=== PATIENT | female | born 1990 | race American Indian/Alaskan Native ===

== ENCOUNTER 2019-07-24 04:21 | Emergency (ER) | payer SELFPAY ==
[2019-07-24 05:33] LABS: Bacteria,Urine 1+ /HPF (Negative); Bilirubin,Urine NEG (Negative); Blood,Urine SM (Negative); Color,Urine Straw (Yellow); Mucus,Urine FEW /HPF; Protein,Urine <15 mg/dL mg/dL (Negative); Urobilinogen,Urine < 2.0 mg/dL (<2.0)
[2019-07-24 05:35] LABS: HCG Qualitative,Urine Negative (Negative)
--- NOTE | 2019-07-24 08:02 | Emergency Department Report ---
ED Female HPI - General Chief complaint: Urogenital-Female Stated complaint: VAGINAL CYST/DISCHARGE Time Seen by Provider: 07/24/19 07:14 Source: patient Mode of arrival: Ambulatory Limitations: No Limitations - History of Present Illness Initial comments: Patient is a 28-year-old female presents emergency room with complaints of vaginal discharge that began a week ago. She states that the discharge is clear. She states she has associated dysuria. Patient states that she has also noticed a cyst of the right labia that began 3 days ago. She has never had this before. She denies any abdominal pain, fever, chills, nausea, vomiting. She states she has past medical history of diabetes. She denies any allergies medications. She states her last menstrual cycle was 07/03/19. - Related Data Previous Rx's Medication Instructions Recorded Last Taken Type Insulin NPH, Human [NovoLIN N] 10 unit SUB-Q BID #1 vial 12/04/14 Unknown Rx metroNIDAZOLE [Flagyl] 500 mg PO BID #14 tablet 12/04/14 Unknown Rx traMADoL [Ultram] 50 mg PO Q6HR PRN #14 tablet 12/04/14 Unknown Rx Acetaminophen/Codeine [Tylenol 1 tab PO Q6H PRN #10 tab 07/24/19 Unknown Rx /Codeine # 3 tab] metroNIDAZOLE [Flagyl] 500 mg PO BID 7 Days #14 tab 07/24/19 Unknown Rx Allergies Allergy/AdvReac Type Severity Reaction Status Date / Time No Known Allergies Allergy Unverified 12/04/14 13:54 ED Review of Systems ROS: Stated complaint: VAGINAL CYST/DISCHARGE Other details as noted in HPI Comment: All other systems reviewed and negative ED Past Medical Hx - Past Medical History Previous Medical History?: Yes Hx Diabetes: Yes (diagnosed at age 15) - Surgical History Past Surgical History?: No - Social History Smoking Status: Never Smoker - Medications Home Medications: Home Medications Medication Instructions Recorded Confirmed Last Taken Type Insulin NPH, Human [NovoLIN N] 10 unit SUB-Q BID #1 vial 12/04/14 Unknown Rx metroNIDAZOLE [Flagyl] 500 mg PO BID #14 tablet 12/04/14 Unknown Rx traMADoL [Ultram] 50 mg PO Q6HR PRN #14 tablet 12/04/14 Unknown Rx Acetaminophen/Codeine [Tylenol 1 tab PO Q6H PRN #10 tab 07/24/19 Unknown Rx /Codeine # 3 tab] metroNIDAZOLE [Flagyl] 500 mg PO BID 7 Days #14 tab 07/24/19 Unknown Rx ED Physical Exam - General Limitations: No Limitations General appearance: alert, in no apparent distress - Head Head exam: Present: atraumatic, normocephalic - Eye Eye exam: Present: normal appearance - ENT ENT exam: Present: mucous membranes moist - GI/Abdominal GI/Abdominal exam: Present: soft. Absent: distended, tenderness, guarding, rebound, rigid - External exam: Present: swelling (2 cm area of induration and fluctuance present to the inner right labia, no drainage, no necrosis) Speculum exam: Present: vaginal discharge (white), cervical discharge (white), other (rv detailer: REYNA ortega). Absent: vaginal bleeding, foreign body, tissue, laceration Bi-manual exam: Present: normal bi-manual exam. Absent: cervical motion tendernes, adnexal tenderness, adnexal mass - Back Exam Back exam: Absent: CVA tenderness (R), CVA tenderness (L) - Neurological Exam Neurological exam: Present: alert, oriented X3 - Psychiatric Psychiatric exam: Present: normal affect, normal mood - Skin Skin exam: Present: warm, dry, intact ED Course Vital Signs 07/24/19 07/24/19 07/24/19 04:25 08:28 08:32 Temperature 97.8 F 97.9 F Pulse Rate 96 H 99 H Respiratory 18 16 16 Rate Blood Pressure 121/84 Blood Pressure 124/89 [Left] O2 Sat by Pulse 97 99 Oximetry 07/24/19 09:40 Temperature 97.7 F Pulse Rate 98 H Respiratory 15 Rate Blood Pressure Blood Pressure 116/77 [Left] O2 Sat by Pulse 98 Oximetry - I & D Right Vagina Type of Procedure: Simple Site: right labia Blade Size: 11 I & D Procedure: betadine prep, sterile drapes applied, sterile dressing applied Progress: Area cleaned with Betadine, 2 mL of 1% lidocaine without epinephrine used as anesthetic, Betadine prep again, sterile drapes applied, 1 cm incision made with 11 blade, initially clear fluid and then purulent drainage expressed, irrigated with saline, iodoform packing placed, patient tolerated well, no complications, bleeding controlled ED Medical Decision Making - Lab Data Lab Results 07/24/19 Range/Units 05:20 Urine Color Straw (Yellow) Urine Turbidity Clear (Clear) Urine pH 6.0 (5.0-7.0) Ur Specific [place] 1.029 (1.003-1.030) Urine Protein <15 mg/dl (Negative) mg/dL Urine Glucose (UA) >=500 (Negative) mg/dL Urine Ketones Neg (Negative) mg/dL Urine Blood Sm (Negative) Urine Nitrite Neg (Negative) Urine Bilirubin Neg (Negative) Urine Urobilinogen < 2.0 (<2.0) mg/dL Ur Leukocyte Esterase Sm (Negative) Urine WBC (Auto) 8.0 H (0.0-6.0) /HPF Urine RBC (Auto) 4.0 (0.0-6.0) /HPF U Epithel Cells (Auto) 2.0 (0-13.0) /HPF Urine Bacteria (Auto) 1+ (Negative) /HPF Urine Mucus Few /HPF Urine HCG, Qual Negative (Negative) - Medical Decision Making Patient is a 28-year-old female presents emergency room with complaints of vaginal discharge that began a week ago. She states that the discharge is clear. She states she has associated dysuria. Patient states that she has also noticed a cyst of the right labia that began 3 days ago. She has never had this before. She denies any abdominal pain, fever, chills, nausea, vomiting. She states she has past medical history of diabetes. She denies any allergies medications. She states her last menstrual cycle was 07/03/19. vitals are norm al. on exam: 2 cm area of induration and fluctuance present to the inner right labia, no drainage, no necrosis, white vaginal/cervical discharge, no CMT, no adenexal tenderness or masses, rv detailer during pelvic examination and I&D: REYNA ortega. UA has very small amount of WBCs and leukocyte esterase but no nitrites, could be related to the BV, will have pt have a repeat of her urine in the next 2-3 days at the [facility]. Incision and drainage performed per procedure note and packing placed. wet Prep shows evidence of BV. pt given prescription for flagyl and tylenol with codine. advised pt to please keep area clean, dry, covered. may wash around the area with soap and water and immediately dry. Packing needs to be removed in 2 days may have this done at the emergency room or by the [facility]. Please take medication as prescribed. Do not drink alcohol while taking medication. Please go to medical records in one week with your drivers license to see if you need further treatment. Please have your partner tested and treated as well. Abstain from sexual intercourse for 7 days. follow up with an [facility] in the next 2-3 days. Return to the emergency room for any new or worsening symptoms. - Differential Diagnosis BV, yeast, STD, vaginitis, bartholins cyst, abscess, UTI Critical care attestation.: If time is entered above; I have spent that time in minutes in the direct care of this critically ill patient, excluding procedure time. ED Disposition Clinical Impression: Bacterial vaginosis, Bartholin cyst Disposition: TO HOME OR SELFCARE Is pt being admited?: No Does the pt Need Aspirin: No Condition: Stable Instructions: Bacterial Vaginosis (ED), Bartholin Cyst (ED), Incision and Drainage (ED) Additional Instructions: Please keep area clean, dry, covered. may wash around the area with soap and water and immediately dry. Packing needs to be removed in 2 days may have this done at the emergency room or by the [facility]. Please take medication as prescribed. Do not drink alcohol while taking medication. Please go to medical records in one week with your drivers license to see if you need further treatment. Please have your partner tested and treated as well. Abstain from sexual intercourse for 7 days. follow up with an [facility] in the next 2-3 days. Return to the emergency room for any new or worsening symptoms. Prescriptions: metroNIDAZOLE [Flagyl] 500 mg PO BID 7 Days #14 tab Acetaminophen/Codeine [Tylenol /Codeine # 3 tab] 1 tab PO Q6H PRN #10 tab PRN Reason: Pain , Severe (7-10) Referrals: [facility] [Outside] - 2-3 Days [facility] [Provider Group] - 2-3 Days [facility] [Provider Group] - 2-3 Days [facility] [Provider Group] - 2-3 Days Forms: [facility] and Prevention Time of Disposition: 09:26 Print Language: PRYDEINIG
[2019-07-24] MEDS ORDERED: LIDOCAINE-MPF (1%) 10 MG/1 ML VIAL 5 ML INFILTRATI ONE (08:43)
[2019-07-24 09:41] VITALS: BP 116/77
== END 2019-07-24 09:42 | disposition home or self-care (01) ==
LOC: ED 04:21
DX: N76.0 Acute vaginitis (principal); B96.89 Other specified bacterial agents as the cause of diseases classified elsewhere; N75.0 Cyst of Bartholin's gland
CPT/HCPCS: 81001; 81025; 87210; 87591

== ENCOUNTER 2019-07-26 12:14 | Emergency (ER) | payer SELFPAY ==
[2019-07-26 12:57] VITALS: BP 105/75
--- NOTE | 2019-07-26 13:17 | Emergency Department Report ---
ED Recheck HPI - General Chief Complaint: Laceration/Recheck/Suture Stated Complaint: REMOVE GAUZE Time Seen by Provider: 07/26/19 12:55 Source: patient Mode of arrival: Ambulatory Limitations: No Limitations - History of Present Illness MD Complaint: wound re-check -: days(s) (3) Initial Visit For: abscess Returns Today for: wound recheck Symptoms Since Prior Visit: no new symptoms, improved Context: planned re-check Associated Symptoms: none Treatments Prior to Arrival: Given Antibiotics on - Related Data Previous Rx's Medication Instructions Recorded Last Taken Type Insulin NPH, Human [NovoLIN N] 10 unit SUB-Q BID #1 vial 12/04/14 Unknown Rx metroNIDAZOLE [Flagyl] 500 mg PO BID #14 tablet 12/04/14 Unknown Rx traMADoL [Ultram] 50 mg PO Q6HR PRN #14 tablet 12/04/14 Unknown Rx Acetaminophen/Codeine [Tylenol 1 tab PO Q6H PRN #10 tab 07/24/19 Unknown Rx /Codeine # 3 tab] metroNIDAZOLE [Flagyl] 500 mg PO BID 7 Days #14 tab 07/24/19 Unknown Rx Allergies Allergy/AdvReac Type Severity Reaction Status Date / Time No Known Allergies Allergy Unverified 12/04/14 13:54 ED Review of Systems ROS: Stated complaint: REMOVE GAUZE Other details as noted in HPI Comment: All other systems reviewed and negative ED Past Medical Hx - Past Medical History Previous Medical History?: Yes Hx Diabetes: Yes (diagnosed at age 15) - Surgical History Past Surgical History?: No - Social History Smoking Status: Never Smoker Substance Use Type: None - Medications Home Medications: Home Medications Medication Instructions Recorded Confirmed Last Taken Type Insulin NPH, Human [NovoLIN N] 10 unit SUB-Q BID #1 vial 12/04/14 Unknown Rx metroNIDAZOLE [Flagyl] 500 mg PO BID #14 tablet 12/04/14 Unknown Rx traMADoL [Ultram] 50 mg PO Q6HR PRN #14 tablet 12/04/14 Unknown Rx Acetaminophen/Codeine [Tylenol 1 tab PO Q6H PRN #10 tab 07/24/19 Unknown Rx /Codeine # 3 tab] metroNIDAZOLE [Flagyl] 500 mg PO BID 7 Days #14 tab 07/24/19 Unknown Rx ED Physical Exam - General Limitations: No Limitations General appearance: alert, in no apparent distress - Head Head exam: Present: atraumatic, normocephalic - Eye Eye exam: Present: normal appearance - ENT ENT exam: Present: mucous membranes moist - Neck Neck exam: Present: normal inspection - Respiratory Respiratory exam: Present: normal lung sounds bilaterally. Absent: respiratory distress - Cardiovascular Cardiovascular Exam: Present: regular rate, normal rhythm. Absent: systolic murmur, diastolic murmur, rubs, gallop - GI/Abdominal GI/Abdominal exam: Present: soft, normal bowel sounds - External exam: Present: erythema (PACKING IN PLACE TO RIGHT LABIA. ), swelling - Extremities Exam Extremities exam: Present: normal inspection - Back Exam Back exam: Present: normal inspection - Neurological Exam Neurological exam: Present: alert, oriented X3 - Psychiatric Psychiatric exam: Present: normal affect, normal mood - Skin Skin exam: Present: warm, dry, intact, normal color. Absent: rash ED Course Vital Signs 07/26/19 12:55 Temperature 97.5 F L Pulse Rate 100 H Respiratory 16 Rate Blood Pressure 105/75 O2 Sat by Pulse 100 Oximetry - Procedure Description Procedures done: ABSCESS PACKING REMOVED NO COMPLICATIONSL. NO COMPLICATIONS. Critical care attestation.: If time is entered above; I have spent that time in minutes in the direct care of this critically ill patient, excluding procedure time. ED Disposition Clinical Impression: Redressing wound Disposition: DC-01 TO HOME OR SELFCARE Is pt being admited?: No Does the pt Need Aspirin: No Condition: Stable Instructions: Acute Wound Care (ED) Referrals: [facility] [Provider Group] - 3-5 Days Forms: Work/School Release Form(ED)
== END 2019-07-26 13:30 | disposition home or self-care (01) ==
LOC: ED 12:14
DX: Z48.1 Encounter for planned postprocedural wound closure (principal); Z53.21 Procedure and treatment not carried out due to patient leaving prior to being seen by health care provider

== ENCOUNTER 2021-08-29 09:30 | Emergency (ER) | payer MEDICAID ==
[2021-08-29 09:47] VITALS: BP 144/95
[2021-08-29] MEDS ORDERED: MORPHINE 4 MG/1 ML INJ IV ONE (10:55)
[2021-08-29] MEDS ORDERED: FAMOTIDINE 20 MG/2 ML INJ IV ONE (10:55)
[2021-08-29] MEDS ORDERED: diphenhydrAMINE 50 MG/ML VIAL IV ONE (10:55)
[2021-08-29] MEDS ORDERED: METOCLOPRAMIDE 10 MG/2 ML INJ IV ONE (10:55)
[2021-08-29] MEDS ORDERED: SODIUM CHLORIDE 0.9% 1000 ML 1,000 ML IV ONE ×2 (10:55→13:06)
--- NOTE | 2021-08-29 11:00 | Emergency Department Report ---
ED General Adult HPI - General Chief complaint: Nausea/Vomiting/Diarrhea Stated complaint: CHEST/ABD PAIN Time Seen by Provider: 08/29/21 10:36 Source: patient Mode of arrival: Ambulatory Limitations: No Limitations - History of Present Illness Initial comments: 30-year-old -Domin[place] female patient presents with complaints of nausea and vomiting for the past 2 days along with mid/upper abdominal pain. She has history of type 1 diabetes. Patient states she has had similar pain over the past few months and has been seen at 3 separate hospitals. She states the only findings were a ovarian cyst. She denies history of gastroparesis or abdominal surgeries. No fever/chills/sweats, cough, chest pain, hematemesis/coffee-ground emesis, melena or hematochezia per patient. She also denies alcohol use. She rates her current pain as a 7/10 in severity. No known drug allergies per patient -: Sudden - Related Data Previous Rx's Medication Instructions Recorded Last Taken Type Insulin NPH, Human [NovoLIN N] 10 unit SUB-Q BID #1 vial 12/04/14 Unknown Rx metroNIDAZOLE [Flagyl] 500 mg PO BID #14 tablet 12/04/14 Unknown Rx traMADoL [Ultram] 50 mg PO Q6HR PRN #14 tablet 12/04/14 Unknown Rx Acetaminophen/Codeine [Tylenol 1 tab PO Q6H PRN #10 tab 07/24/19 Unknown Rx /Codeine # 3 tab] metroNIDAZOLE [Flagyl] 500 mg PO BID 7 Days #14 tab 07/24/19 Unknown Rx Metoclopramide [Reglan] 10 mg PO TID PRN #30 tab 08/29/21 Unknown Rx Pantoprazole [Protonix] 40 mg PO QAM #14 tablet 08/29/21 Unknown Rx Sucralfate [Carafate] 1 gm PO QID 10 Days #40 tablet 08/29/21 Unknown Rx diphenhydrAMINE [Benadryl CAP] 25 mg PO TID PRN #30 capsule 08/29/21 Unknown Rx Allergies Allergy/AdvReac Type Severity Reaction Status Date / Time No Known Allergies Allergy Verified 08/29/21 09:41 ED Review of Systems ROS: Stated complaint: CHEST/ABD PAIN Other details as noted in HPI Constitutional: denies: chills, fever, malaise Respiratory: denies: cough, shortness of breath Cardiovascular: denies: chest pain Gastrointestinal: abdominal pain, nausea, vomiting. denies: diarrhea, constipation, hematemesis, melena, hematochezia Genitourinary: denies: urgency, frequency, hematuria, abnormal menses, dyspareunia Musculoskeletal: denies: back pain Skin: denies: as per HPI, rash, change in color Neurological: denies: headache Hematological/Lymphatic: denies: swollen glands ED Past Medical Hx - Past Medical History Hx Diabetes: Yes (diagnosed at age 15) - Surgical History Past Surgical History?: No - Social History Smoking Status: Never Smoker Substance Use Type: None - Medications Home Medications: Home Medications Medication Instructions Recorded Confirmed Last Taken Type Insulin NPH, Human [NovoLIN N] 10 unit SUB-Q BID #1 vial 12/04/14 Unknown Rx metroNIDAZOLE [Flagyl] 500 mg PO BID #14 tablet 12/04/14 Unknown Rx traMADoL [Ultram] 50 mg PO Q6HR PRN #14 tablet 12/04/14 Unknown Rx Acetaminophen/Codeine [Tylenol 1 tab PO Q6H PRN #10 tab 07/24/19 Unknown Rx /Codeine # 3 tab] metroNIDAZOLE [Flagyl] 500 mg PO BID 7 Days #14 tab 07/24/19 Unknown Rx Metoclopramide [Reglan] 10 mg PO TID PRN #30 tab 08/29/21 Unknown Rx Pantoprazole [Protonix] 40 mg PO QAM #14 tablet 08/29/21 Unknown Rx Sucralfate [Carafate] 1 gm PO QID 10 Days #40 tablet 08/29/21 Unknown Rx diphenhydrAMINE [Benadryl CAP] 25 mg PO TID PRN #30 capsule 08/29/21 Unknown Rx ED Physical Exam - General Limitations: No Limitations General appearance: alert, in no apparent distress - Head Head exam: Present: atraumatic, normocephalic - Eye Eye exam: Present: normal appearance. Absent: scleral icterus - Neck Neck exam: Present: normal inspection - Respiratory Respiratory exam: Present: normal lung sounds bilaterally. Absent: respiratory distress - Cardiovascular Cardiovascular Exam: Present: regular rate, normal rhythm - GI/Abdominal GI/Abdominal exam: Present: soft, tenderness (Epigastric and periumbilical), normal bowel sounds. Absent: distended, guarding, rebound, rigid - Expanded GI/Abdominal Exam Expanded GI/Abdominal exam: Absent: Drake's sign, tenderness at Mcbur[place]'s Point - Back Exam Back exam: Present: normal inspection, CVA tenderness (R) (Minimal). Absent: CVA tenderness (L) - Neurological Exam Neurological exam: Present: alert, oriented X3, normal gait - Psychiatric Psychiatric exam: Present: normal affect, normal mood - Skin Skin exam: Present: warm, dry, intact, normal color. Absent: rash ED Course Vital Signs 08/29/21 09:46 Temperature 98.5 F Pulse Rate 104 H Respiratory 20 Rate Blood Pressure 144/95 O2 Sat by Pulse 98 Oximetry ED Medical Decision Making - Lab Data Result diagrams: 08/29/21 11:13 08/29/21 11:13 Lab Results 08/29/21 08/29/21 08/29/21 Range/Units 09:47 11:13 11:13 WBC 8.3 (4.5-11.0) K/mm3 RBC 4.08 (3.65-5.03) M/mm3 Hgb 10.6 (10.1-14.3) gm/dl Hct 32.9 (30.3-42.9) % MCV 81 (79-97) fl MCH 26 L (28-32) pg MCHC 32 (30-34) % RDW 17.1 H (13.2-15.2) % Plt Count 425 (140-440) K/mm3 Lymph % (Auto) 22.8 (13.4-35.0) % [place] % (Auto) 5.7 (0.0-7.3) % Eos % (Auto) 0.3 (0.0-4.3) % Baso % (Auto) 0.7 (0.0-1.8) % Lymph # (Auto) 1.9 (1.2-5.4) K/mm3 [place] # (Auto) 0.5 (0.0-0.8) K/mm3 Eos # (Auto) 0.0 (0.0-0.4) K/mm3 Baso # (Auto) 0.1 (0.0-0.1) K/mm3 Seg Neutrophils % 70.5 H (40.0-70.0) % Seg Neutrophils # 5.9 (1.8-7.7) K/mm3 VBG pH (7.320-7.420) Sodium 133 L (137-145) mmol/L Potassium 4.0 (3.6-5.0) mmol/L Chloride 97.7 L (98-107) mmol/L Carbon Dioxide 19 L (22-30) mmol/L Anion Gap 20 mmol/L BUN 16 (7-17) mg/dL Creatinine 0.6 (0.6-1.2) mg/dL Estimated GFR > 60 ml/min BUN/Creatinine Ratio 27 % Glucose 241 H (65-100) mg/dL POC Glucose 225 H (70-105) mg/dL Calcium 8.9 (8.4-10.2) mg/dL Total Bilirubin 0.40 (0.1-1.2) mg/dL AST 18 (5-40) units/L ALT 12 (7-56) units/L Alkaline Phosphatase 151 H (35-129) units/L Total Protein 7.9 (6.3-8.2) g/dL Albumin 3.8 L (3.9-5) g/dL Albumin/Globulin Ratio 0.9 % Lipase 27 (13-60) units/L HCG, Qual (Negative) 08/29/21 08/29/21 Range/Units 11:13 11:13 WBC (4.5-11.0) K/mm3 RBC (3.65-5.03) M/mm3 Hgb (10.1-14.3) gm/dl Hct (30.3-42.9) % MCV (79-97) fl MCH (28-32) pg MCHC (30-34) % RDW (13.2-15.2) % Plt Count (140-440) K/mm3 Lymph % (Auto) (13.4-35.0) % [place] % (Auto) (0.0-7.3) % Eos % (Auto) (0.0-4.3) % Baso % (Auto) (0.0-1.8) % Lymph # (Auto) (1.2-5.4) K/mm3 [place] # (Auto) (0.0-0.8) K/mm3 Eos # (Auto) (0.0-0.4) K/mm3 Baso # (Auto) (0.0-0.1) K/mm3 Seg Neutrophils % (40.0-70.0) % Seg Neutrophils # (1.8-7.7) K/mm3 VBG pH 7.414 (7.320-7.420) Sodium (137-145) mmol/L Potassium (3.6-5.0) mmol/L Chloride (98-107) mmol/L Carbon Dioxide (22-30) mmol/L Anion Gap mmol/L BUN (7-17) mg/dL Creatinine (0.6-1.2) mg/dL Estimated GFR ml/min BUN/Creatinine Ratio % Glucose (65-100) mg/dL POC Glucose (70-105) mg/dL Calcium (8.4-10.2) mg/dL Total Bilirubin (0.1-1.2) mg/dL AST (5-40) units/L ALT (7-56) units/L Alkaline Phosphatase (35-129) units/L Total Protein (6.3-8.2) g/dL Albumin (3.9-5) g/dL Albumin/Globulin Ratio % Lipase (13-60) units/L HCG, Qual Negative (Negative) - Radiology Data Radiology results: report reviewed CT ABDOMEN: Lung Bases: No significant abnormality. Liver: No significant abnormality. Biliary: No significant abnormality. Spleen: No significant abnormality. Unenlarged. Pancreas: No significant abnormality. Adrenals: No significant abnormality. Kidneys: No significant abnormality. Lymphatics: No lymphadenopathy. Vasculature: No significant abnormality. Bowel/Peritoneum: No significant abnormality. No free air. No free fluid. CT PELVIC: : There is a 4.8 cm left ovarian cyst. Lymphatics: No lymphadenopathy. Osseous Structures: No aggressive appearing osseous lesions. Additional Findings: None IMPRESSION: 1. No acute findings. 2. Incidental 4.8 cm left ovarian cyst. - Medical Decision Making 30-year-old -[place] female patient presents with complaints of nausea and vomiting for the past 2 days along with mid/upper abdominal pain. She has history of type 1 diabetes. Patient states she has had similar pain over the past few months and has been seen at 3 separate hospitals. She states the only findings were a ovarian cyst. She denies history of gastroparesis or abdominal surgeries. No fever/chills/sweats, cough, chest pain, hematemesis/coffee-ground emesis, melena or hematochezia per patient. She also denies alcohol use. She rates her current pain as a 7/10 in severity. No known drug allergies per patient No acute abnormalities noted on CBC. Dehydration noted on CMP with anion gap of 20. Lipase is normal. CT abdomen is negative for any acute abnormalities and shows right ovarian cyst which is consistent with patient's past medical history. Her vitals are within normal limits and she is well-appearing. Vomiting is controlled with meds given here in ED. Suspect patient may have gastroparesis. Recommend follow-up with GI specialist, referral provided. Discussed in detail signs and symptoms that should prompt immediate return to the ED with patient verbalizes understand Critical care attestation.: If time is entered above; I have spent that time in minutes in the direct care of this critically ill patient, excluding procedure time. ED Disposition Clinical Impression: Nausea & vomiting Disposition: 01 HOME / SELF CARE / HOMELESS Is pt being admited?: No Condition: Stable Instructions: Gastroparesis Prescriptions: diphenhydrAMINE [Benadryl CAP] 25 mg PO TID PRN #30 capsule PRN Reason: Nausea Sucralfate [Carafate] 1 gm PO QID 10 Days #40 tablet Pantoprazole [Protonix] 40 mg PO QAM #14 tablet Metoclopramide [Reglan] 10 mg PO TID PRN #30 tab PRN Reason: Nausea Referrals: PRIMARY CARE, [Primary Care Provider] - 3-5 Days [facility] [Provider Group] - 3-5 Days Forms: Work/School Release Form(ED)
[2021-08-29 12:17] LABS: Basophils # (Auto) 0.1 K/mm3 (0.0-0.1); Basophils % (Auto) 0.7 % (0.0-1.8); Eosinophils % (Auto) 0.3 % (0.0-4.3); Hematocrit 32.9 % (30.3-42.9); Hemoglobin 10.6 gm/dl (10.1-14.3); Lymphocytes # (Auto) 1.9 K/mm3 (1.2-5.4); Lymphocytes % (Auto) 22.8 % (13.4-35.0); Mean Corpuscular HGB Conc 32 % (30-34); Mean Corpuscular Volume 81 fl (79-97); Monocytes # (Auto) 0.5 K/mm3 (0.0-0.8); Monocytes % (Auto) 5.7 % (0.0-7.3); Platelet Count 425 K/mm3 (140-440); Red Blood Count 4.08 M/mm3 (3.65-5.03); Red Cell Distribution Width 17.1 % (13.2-15.2)
[2021-08-29 12:46] LABS: Alanine Aminotransferase 12 units/L (7-56); Albumin 3.8 g/dL (3.9-5); Blood Urea Nitrogen 16 mg/dL (7-17); Calcium 8.9 mg/dL (8.4-10.2); Hemolysis Index 32
[2021-08-29 13:00] LABS: BUN/Creatinine Ratio 27
--- NOTE | 2021-08-29 13:31 | Cat Scan Report ---
CT ABDOMEN AND PELVIS WITH CONTRAST HISTORY: mid/upper abdominal pain, vomiting 100 ml omni 300 COMPARISON: None TECHNIQUE: Routine abdominal and pelvic CT exam performed following intravenous contrast administrat ion.. All CT scans at this location are performed using CT dose reduction for ALARA by means of autom ated exposure control. FINDINGS: CT ABDOMEN: Lung Bases: No significant abnormality. Liver: No significant abnormality. Biliary: No significant abnormality. Spleen: No significant abnormality. Unenlarged. Pancreas: No significant abnormality. Adrenals: No significant abnormality. Kidneys: No significant abnormality. Lymphatics: No lymphadenopathy. Vasculature: No significant abnormality. Bowel/Peritoneum: No significant abnormality. No free air. No free fluid. CT PELVIC: : There is a 4.8 cm left ovarian cyst. Lymphatics: No lymphadenopathy. Osseous Structures: No aggressive appearing osseous lesions. Additional Findings: None IMPRESSION: 1. No acute findings. 2. Incidental 4.8 cm left ovarian cyst. Signer Name: Neftaly Rodríguez MD Signed: 08/29/2021 1:26 PM Workstation Name: [id number]
[2021-08-29] MEDS ORDERED: ACETAMINOPHEN 325 MG TAB PO ONE (13:49)
[2021-08-29] MEDS ORDERED: KETOROLAC 30 MG/1 ML INJ IV ONE (13:49)
[2021-08-29] MEDS ORDERED: ONDANSETRON 4 MG/2 ML INJ IV ONE (14:08)
== END 2021-08-29 15:51 | disposition home or self-care (01) ==
LOC: ED 09:30
DX: R11.2 Nausea with vomiting, unspecified (principal); E10.9 Type 1 diabetes mellitus without complications; Z79.899 Other long term (current) drug therapy
CPT/HCPCS: 36415; 74177; 80053; 82805; 82962; 83690; 84703; 85025; 96361; 96374; 96375; 99284; J1200; J1885; J2270; J2405; J2765; J3490; J7030; Q9967; Q0162

== ENCOUNTER 2022-03-29 13:32 | Emergency (ER) | payer MEDICAID ==
[2022-03-29 15:51] LABS: Basophils % (Auto) 0.5 % (0.0-1.8); Eosinophils % (Auto) 0.1 % (0.0-4.3); Hematocrit 30.2 % (30.3-42.9); Hemoglobin 10.2 gm/dl (10.1-14.3); Lymphocytes # (Auto) 2.2 K/mm3 (1.2-5.4); Lymphocytes % (Auto) 27.7 % (13.4-35.0); Mean Corpuscular HGB Conc 34 % (30-34); Mean Corpuscular Volume 80 fl (79-97); Monocytes # (Auto) 0.4 K/mm3 (0.0-0.8); Monocytes % (Auto) 5.5 % (0.0-7.3); Platelet Count 419 K/mm3 (140-440); Red Blood Count 3.79 M/mm3 (3.65-5.03); Red Cell Distribution Width 15.4 % (13.2-15.2)
[2022-03-29 16:02] LABS: Bacteria,Urine 1+ /HPF (Negative); Mucus,Urine FEW /HPF
[2022-03-29 16:17] LABS: Alanine Aminotransferase 15 units/L (7-56); Albumin 4.3 g/dL (3.9-5); BUN/Creatinine Ratio 17; Blood Urea Nitrogen 15 mg/dL (7-17); Calcium 9.5 mg/dL (8.4-10.2); Hemolysis Index 5
[2022-03-29 16:36] LABS: Color,Urine Yellow (Yellow)
[2022-03-29] MEDS ORDERED: ONDANSETRON 4 MG ODT TAB PO ONE (23:00)
[2022-03-29] MEDS ORDERED: HYDROcodone/ACETAMINOPHEN 5-325 MG TAB PO ONE (23:00)
--- NOTE | 2022-03-29 23:56 | Emergency Department Report ---
ED Abdominal Pain HPI - General Chief Complaint: Abdominal Pain Stated Complaint: BACK PAIN Time Seen by Provider: 03/29/22 22:21 Source: patient, EMS Mode of arrival: Ambulatory Limitations: No Limitations - History of Present Illness Initial Comments: 31-year-old female past medical history type I diabetic reports to the ER with upper abdominal pain and lower back pain for days with nausea vomiting and no diarrhea. No other acute symptoms reported this time. Patient reports she was seen in another ER and was only given Zofran. Denies any prior imaging. Patient reports eating makes her symptoms worse. Severity scale (0 -10): 10 - Related Data Previous Rx's Medication Instructions Recorded Last Taken Type Insulin NPH, Human [NovoLIN N] 10 unit SUB-Q BID #1 vial 12/04/14 Unknown Rx metroNIDAZOLE [Flagyl] 500 mg PO BID #14 tablet 12/04/14 Unknown Rx traMADoL [Ultram] 50 mg PO Q6HR PRN #14 tablet 12/04/14 Unknown Rx Acetaminophen/Codeine [Tylenol 1 tab PO Q6H PRN #10 tab 07/24/19 Unknown Rx /Codeine # 3 tab] metroNIDAZOLE [Flagyl] 500 mg PO BID 7 Days #14 tab 07/24/19 Unknown Rx Metoclopramide [Reglan] 10 mg PO TID PRN #30 tab 08/29/21 Unknown Rx Pantoprazole [Protonix] 40 mg PO QAM #14 tablet 08/29/21 Unknown Rx Sucralfate [Carafate] 1 gm PO QID 10 Days #40 tablet 08/29/21 Unknown Rx diphenhydrAMINE [Benadryl CAP] 25 mg PO TID PRN #30 capsule 08/29/21 Unknown Rx traMADoL [Ultram 50 MG tab] 50 mg PO Q6HR PRN #8 tablet 08/29/21 Unknown Rx Acetaminophen/Codeine [Tylenol 1 tab PO Q6H PRN 2 Days #6 tab 03/30/22 Unknown Rx /Codeine # 3 tab] Ondansetron [Zofran Odt] 4 mg PO Q12HR 3 Days #6 tab.rapdis 03/30/22 Unknown Rx Allergies Allergy/AdvReac Type Severity Reaction Status Date / Time No Known Allergies Allergy Verified 08/29/21 09:41 ED Review of Systems ROS: Stated complaint: BACK PAIN Other details as noted in HPI Comment: All other systems reviewed and negative Gastrointestinal: abdominal pain, nausea, vomiting. denies: diarrhea ED Past Medical Hx - Past Medical History Previous Medical History?: Yes Hx Diabetes: Yes (diagnosed at age 15) - Surgical History Past Surgical History?: No - Social History Smoking Status: Never Smoker Substance Use Type: None - Medications Home Medications: Home Medications Medication Instructions Recorded Confirmed Last Taken Type Insulin NPH, Human [NovoLIN N] 10 unit SUB-Q BID #1 vial 12/04/14 Unknown Rx metroNIDAZOLE [Flagyl] 500 mg PO BID #14 tablet 12/04/14 Unknown Rx traMADoL [Ultram] 50 mg PO Q6HR PRN #14 tablet 12/04/14 Unknown Rx Acetaminophen/Codeine [Tylenol 1 tab PO Q6H PRN #10 tab 07/24/19 Unknown Rx /Codeine # 3 tab] metroNIDAZOLE [Flagyl] 500 mg PO BID 7 Days #14 tab 07/24/19 Unknown Rx Metoclopramide [Reglan] 10 mg PO TID PRN #30 tab 08/29/21 Unknown Rx Pantoprazole [Protonix] 40 mg PO QAM #14 tablet 08/29/21 Unknown Rx Sucralfate [Carafate] 1 gm PO QID 10 Days #40 tablet 08/29/21 Unknown Rx diphenhydrAMINE [Benadryl CAP] 25 mg PO TID PRN #30 capsule 08/29/21 Unknown Rx traMADoL [Ultram 50 MG tab] 50 mg PO Q6HR PRN #8 tablet 08/29/21 Unknown Rx Acetaminophen/Codeine [Tylenol 1 tab PO Q6H PRN 2 Days #6 tab 03/30/22 Unknown Rx /Codeine # 3 tab] Ondansetron [Zofran Odt] 4 mg PO Q12HR 3 Days #6 tab.rapdis 03/30/22 Unknown Rx ED Physical Exam - General Limitations: No Limitations General appearance: alert, in no apparent distress - Head Head exam: Present: atraumatic, normocephalic - Eye Eye exam: Present: normal appearance - ENT ENT exam: Present: mucous membranes moist - Neck Neck exam: Present: normal inspection - Respiratory Respiratory exam: Present: normal lung sounds bilaterally. Absent: respiratory distress - Cardiovascular Cardiovascular Exam: Present: regular rate, normal rhythm. Absent: systolic murmur, diastolic murmur, rubs, gallop - GI/Abdominal GI/Abdominal exam: Present: soft, tenderness, normal bowel sounds, other (Negative Drake sign.). Absent: distended, guarding, rebound, rigid - Extremities Exam Extremities exam: Present: normal inspection - Back Exam Back exam: Present: normal inspection - Neurological Exam Neurological exam: Present: alert, oriented X3 - Psychiatric Psychiatric exam: Present: normal affect, normal mood - Skin Skin exam: Present: warm, dry, intact, normal color. Absent: rash ED Course Vital Signs 03/29/22 03/30/22 03/30/22 15:13 01:20 02:10 Temperature 98.6 F 98.5 F Pulse Rate 110 H 100 H Respiratory 20 17 Rate Blood Pressure 171/104 151/101 [Right] O2 Sat by Pulse 100 100 98 Oximetry 03/30/22 02:46 Temperature Pulse Rate Respiratory Rate Blood Pressure 113/78 [Right] O2 Sat by Pulse Oximetry - Reevaluation(s) Reevaluation #1: 03/30/22 01:59 Patient reports a decrease in her pain after receiving oral pain medicine. ED Medical Decision Making - Lab Data Result diagrams: 03/29/22 15:31 03/29/22 15:30 - Radiology Data Radiology results: report reviewed [facility] [address] [place] [address] Ultrasound Report Signed Patient: JASPER HUBER MR#: [id number] : 1990 Acct:[id number] Age/Sex: 31 / F ADM Date: 03/29/22 Loc: ED Attending Dr: Ordering Physician: NEHAL STOCKTON NP Date of Service: 03/29/22 Procedure(s): US abdomen limited Accession Number(s): [id number] cc: NEHAL STOCKTON NP ULTRASOUND ABDOMEN, LIMITED INDICATION / CLINICAL INFORMATION: RUQ pain. COMPARISON: None available. TECHNIQUE: Using transcutaneous protocol multiple grayscale and color Doppler images were captured and stored of the pancreas, liver, aorta, inferior vena cava, gallbladder, common bile duct, and right kidney. FINDINGS: PANCREAS: Visualized portion shows no significant abnormality. AORTA: Longitudinal images of the aorta demonstrate no significant abnormality. IVC: Longitudinal images of the inferior vena cava demonstrate no significant abnormality. LIVER: Right hepatic lobe measures 13.2 cm. No focal lesion of the liver demo nstrated. Normal hepatopedal blood flow in the main portal vein. GALLBLADDER: No acute findings. Minimal dependent sludge and/or floating debris. BILE DUCTS: No significant abnormality. Common bile duct measures 4.2 mm. RIGHT KIDNEY: Right kidney measures 11.6 cm in craniocaudal dimension. Small echogenic focus within the medulla of the mid kidney possibly representing a small angiomyolipoma versus nonshadowing calcification. Right kidney is otherwise unremarkable. FREE FLUID: None. ADDITIONAL FINDINGS: None. IMPRESSION: 1. No acute findings. Nonacute findings as detailed. Signer Name: Little Delgado II, MD Signed: 03/30/2022 1:17 AM Workstation Name: [id number] Transcribed By: LISSA Dictated By: LITTLE DELGADO II, MD Electronically Authenticated By: LITTLE DELGADO II, MD Signed Date/Time: 03/30/22116 DD/ 4 TD/TT: - Medical Decision Making 31-year-old female past medical history diabetes type 1 reports to the ER with abdominal pain right upper quadrant for 4 days with nausea and vomiting. No diarrhea patient reports eating makes pain worse. On physical exam patient has right upper quadrant tenderness negative Drake sign. No other acute abdominal signs noted. Labs unremarkable - glucose 124 Ultrasound shows no acute process noted. See ultrasound report for further details. Patient reports a decrease in her pain after receiving oral pain medicine. Patient updated on ultrasound and lab results. No concerns for acute cholecystitis. No stones noted. Patient is stable for discharge. Patient informed to follow her primary care provider as needed. Patient informed if symptoms are to return to report back to the ER. Patient stable for discharge home. No further work-up is needed at this time. Vital Signs 03/29/22 03/30/22 15:13 01:20 Temperature 98.6 F 98.5 F Pulse Rate 110 H 100 H Respiratory 20 17 Rate Blood Pressure 171/104 151/101 [Right] O2 Sat by Pulse 100 100 Oximetry Vital Signs 03/29/22 03/30/22 03/30/22 15:13 01:20 02:10 Temperature 98.6 F 98.5 F Pulse Rate 110 H 100 H Respiratory 20 17 Rate Blood Pressure 171/104 151/101 [Right] O2 Sat by Pulse 100 100 98 Oximetry 03/30/22 02:46 Temperature Pulse Rate Respiratory Rate Blood Pressure 113/78 [Right] O2 Sat by Pulse Oximetry Lab Results 03/29/22 03/29/22 03/29/22 Range/Units 15:30 15:31 Unknown WBC 7.8 (4.5-11.0) K/mm3 RBC 3.79 (3.65-5.03) M/mm3 Hgb 10.2 (10.1-14.3) gm/dl Hct 30.2 L (30.3-42.9) % MCV 80 (79-97) fl MCH 27 L (28-32) pg MCHC 34 (30-34) % RDW 15.4 H (13.2-15.2) % Plt Count 419 (140-440) K/mm3 Lymph % (Auto) 27.7 (13.4-35.0) % [place] % (Auto) 5.5 (0.0-7.3) % Eos % (Auto) 0.1 (0.0-4.3) % Baso % (Auto) 0.5 (0.0-1.8) % Lymph # (Auto) 2.2 (1.2-5.4) K/mm3 [place] # (Auto) 0.4 (0.0-0.8) K/mm3 Eos # (Auto) 0.0 (0.0-0.4) K/mm3 Baso # (Auto) 0.0 (0.0-0.1) K/mm3 Seg Neutrophils % 66.2 (40.0-70.0) % Seg Neutrophils # 5.2 (1.8-7.7) K/mm3 Sodium 136 L (137-145) mmol/L Potassium 4.0 (3.6-5.0) mmol/L Chloride 100.0 (98-107) mmol/L Carbon Dioxide 20 L (22-30) mmol/L Anion Gap 20 mmol/L BUN 15 (7-17) mg/dL Creatinine 0.9 (0.6-1.2) mg/dL Estimated GFR > 60 ml/min BUN/Creatinine Ratio 17 % Glucose 124 H (65-100) mg/dL Calcium 9.5 (8.4-10.2) mg/dL Total Bilirubin 0.30 (0.1-1.2) mg/dL AST 17 (5-40) units/L ALT 15 (7-56) units/L Alkaline Phosphatase 147 H (35-129) units/L Total Protein 7.4 (6.3-8.2) g/dL Albumin 4.3 (3.9-5) g/dL Albumin/Globulin Ratio 1.4 % Lipase (13-60) units/L Urine Color Yellow (Yellow) Urine Turbidity Clear (Clear) Specific [place] (Man) 1.015 (1.003-1.030) Ur Protein (Man) 4+ (Negative) mg/dL Ur Ketones (Man) 1+ (Negative) Ur Nitrite (Man) Negative (Negative) Ur Reducing Substances Not Reportable Urine Bilirubin (Man) Negative (Negative) Urine Ictotest Not Reportable Leukocyte Esterase (Man) Negative (Negative) Urine WBC (Auto) 3.0 (0.0-6.0) /HPF Urine RBC (Auto) 3.0 (0.0-6.0) /HPF U Epithel Cells (Auto) 8.0 (0-13.0) /HPF Urine Bacteria (Auto) 1+ (Negative) /HPF Urine RBC (Manual) Negative (Negative) Urine Mucus Few /HPF 03/29/22 Range/Units Unknown WBC (4.5-11.0) K/mm3 RBC (3.65-5.03) M/mm3 Hgb (10.1-14.3) gm/dl Hct (30.3-42.9) % MCV (79-97) fl MCH (28-32) pg MCHC (30-34) % RDW (13.2-15.2) % Plt Count (140-440) K/mm3 Lymph % (Auto) (13.4-35.0) % [place] % (Auto) (0.0-7.3) % Eos % (Auto) (0.0-4.3) % Baso % (Auto) (0.0-1.8) % Lymph # (Auto) (1.2-5.4) K/mm3 [place] # (Auto) (0.0-0.8) K/mm3 Eos # (Auto) (0.0-0.4) K/mm3 Baso # (Auto) (0.0-0.1) K/mm3 Seg Neutrophils % (40.0-70.0) % Seg Neutrophils # (1.8-7.7) K/mm3 Sodium (137-145) mmol/L Potassium (3.6-5.0) mmol/L Chloride (98-107) mmol/L Carbon Dioxide (22-30) mmol/L Anion Gap mmol/L BUN (7-17) mg/dL Creatinine (0.6-1.2) mg/dL Estimated GFR ml/min BUN/Creatinine Ratio % Glucose (65-100) mg/dL Calcium (8.4-10.2) mg/dL Total Bilirubin (0.1-1.2) mg/dL AST (5-40) units/L ALT (7-56) units/L Alkaline Phosphatase (35-129) units/L Total Protein (6.3-8.2) g/dL Albumin (3.9-5) g/dL Albumin/Globulin Ratio % Lipase 19 (13-60) units/L Urine Color (Yellow) Urine Turbidity (Clear) Specific [place] (Man) (1.003-1.030) Ur Protein (Man) (Negative) mg/dL Ur Ketones (Man) (Negative) Ur Nitrite (Man) (Negative) Ur Reducing Substances Urine Bilirubin (Man) (Negative) Urine Ictotest Leukocyte Esterase (Man) (Negative) Urine WBC (Auto) (0.0-6.0) /HPF Urine RBC (Auto) (0.0-6.0) /HPF U Epithel Cells (Auto) (0-13.0) /HPF Urine Bacteria (Auto) (Negative) /HPF Urine RBC (Manual) (Negative) Urine Mucus /HPF Critical care attestation.: If time is entered above; I have spent that time in minutes in the direct care of this critically ill patient, excluding procedure time. ED Disposition Clinical Impression: RUQ abdominal pain Nausea & vomiting Qualifiers: Vomiting type: unspecified Qualified Code(s): R11.2 - Nausea with vomiting, unspecified Disposition: 01 HOME / SELF CARE / HOMELESS Is pt being admited?: No Condition: Stable Instructions: Nausea and Vomiting, Adult, [id number], Abdominal Pain, Adult, [id number], Abdominal Pain (ED) Prescriptions: Acetaminophen/Codeine [Tylenol /Codeine # 3 tab] 1 tab PO Q6H PRN 2 Days #6 tab PRN Reason: Pain , Severe (7-10) Ondansetron [Zofran Odt] 4 mg PO Q12HR 3 Days #6 tab.rapdis Referrals: Stella FERNANDEZ MD [Other] - 3-5 Days
--- NOTE | 2022-03-30 01:22 | Ultrasound Report ---
ULTRASOUND ABDOMEN, LIMITED INDICATION / CLINICAL INFORMATION: RUQ pain. COMPARISON: None available. TECHNIQUE: Using transcutaneous protocol multiple grayscale and color Doppler images were captured an d stored of the pancreas, liver, aorta, inferior vena cava, gallbladder, common bile duct, and right kidney. FINDINGS: PANCREAS: Visualized portion shows no significant abnormality. AORTA: Longitudinal images of the aorta demonstrate no significant abnormality. IVC: Longitudinal images of the inferior vena cava demonstrate no significant abnormality. LIVER: Right hepatic lobe measures 13.2 cm. No focal lesion of the liver demonstrated. Normal hepatop edal blood flow in the main portal vein. GALLBLADDER: No acute findings. Minimal dependent sludge and/or floating debris. BILE DUCTS: No significant abnormality. Common bile duct measures 4.2 mm. RIGHT KIDNEY: Right kidney measures 11.6 cm in craniocaudal dimension. Small echogenic focus within t he medulla of the mid kidney possibly representing a small angiomyolipoma versus nonshadowing calcifi cation. Right kidney is otherwise unremarkable. FREE FLUID: None. ADDITIONAL FINDINGS: None. IMPRESSION: 1. No acute findings. Nonacute findings as detailed. Signer Name: Andres Soto II, MD Signed: 03/30/2022 1:17 AM Workstation Name: [id number]
[2022-03-30 02:47] VITALS: BP 113/78
== END 2022-03-30 02:47 | disposition home or self-care (01) ==
LOC: ED 13:32
DX: R10.11 Right upper quadrant pain (principal); R11.2 Nausea with vomiting, unspecified; I10 Essential (primary) hypertension
CPT/HCPCS: 36415; 76705; 80053; 81001; 83690; 85025; 99284; J3490; Q0162